=== PATIENT | male | born 1965 | race Caucasian/White ===

== ENCOUNTER 2017-01-28 21:16 | Emergency (ER) | payer SELFPAY ==
[~2017-01-28] VITALS: Ht 175.3 cm; Wt 77.1 kg
[~2017-01-28 21:16] MED LIST: HYDR-3326 PO; HYDR1LIQ PO
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
[2017-01-28] MEDS ORDERED: HYDROCODONE/APAP 5/325MG 1 EACH TABLET ONE (22:26)
[2017-01-28] MEDS ORDERED: HYDROCODONE/APAP 5/325MG 1 EACH TABLET PO ONE (22:30)
--- NOTE | 2017-01-28 22:32 | NUR ---
CALLED RADIOLOGY FOR LEFT SHOULDER XR.
--- NOTE | 2017-01-28 22:35 | NUR ---
URINE COLLECTED. DR. BAKER AWARE
--- NOTE | 2017-01-28 22:40 | NUR ---
RADIOLOGY AT BEDSIDE LEFT SHOULDER XR
--- NOTE | 2017-01-29 00:16 | NUR ---
Patient discharged to home in stable condition. Written and verbal after care instructions given. Patient verbalizes understanding of instruction. ambulatory with a steady gait
[2017-01-29 00:17] VITALS: BP 151/62
== END 2017-01-29 00:18 | disposition home or self-care (01) ==
LOC: ER 21:17
DX: S16.1XXA Strain of muscle, fascia and tendon at neck level, initial encounter (principal); S39.012A Strain of muscle, fascia and tendon of lower back, initial encounter; S40.012A Contusion of left shoulder, initial encounter; Z98.890 Other specified postprocedural states; V43.52XA Car driver injured in collision with other type car in traffic accident, initial encounter; Y93.89 Activity, other specified; Y92.89 Other specified places as the place of occurrence of the external cause; Y99.9 Unspecified external cause status
CPT/HCPCS: 73030; 99284; A4606; Z7610